=== PATIENT | male | born 1995 | race Caucasian/White ===

== ENCOUNTER → 2020-09-26 09:41 | Outpatient (CLI) | payer OTHER, SELFPAY ==
[2020-09-26 10:05] LABS: COVID19 -Nasal RAPID Negative (Negative)
== END ==
PROVIDERS: Visit Provider Student in an Organized Health Care Education/Training Program
DX: J02.9 Acute pharyngitis, unspecified (principal); R05 Cough; R09.81 Nasal congestion; R51.9 Headache, unspecified
CPT/HCPCS: 87070; 87635

== ENCOUNTER → 2021-06-11 13:38 | Outpatient (CLI) | payer OTHER, SELFPAY ==
[2021-06-11 14:51] LABS: COVID19 -Nasal RAPID POSITIVE (Negative)
== END ==
PROVIDERS: Referring Provider Student in an Organized Health Care Education/Training Program; Visit Provider Student in an Organized Health Care Education/Training Program
DX: Z20.822 Contact with and (suspected) exposure to COVID-19 (principal)
CPT/HCPCS: 87635